=== PATIENT | female | born 1960 ===

== ENCOUNTER 2018-08-16 02:02 | Emergency (ER) | payer OTHER ==
[2018-08-16 02:16] VITALS: RESP 18; TEMP 97.8
--- NOTE | 2018-08-16 03:16 | ED PDOC ---
HPI: Abdomen Time Seen by Provider: 08/16/18 02:42 Chief Complaint (Nursing): Abdominal Pain Chief Complaint (Provider): abdominal pain History Per: Patient History/Exam Limitations: no limitations Onset/Duration Of Symptoms: Hrs Outside of [place] travel?: No Location Of Pain/Discomfort: RUQ Quality Of Discomfort: Sharp, Stabbing Associated Symptoms: Nausea. denies: Vomiting, Loss Of Appetite Additional Complaint(s): 57 y/o F with hx of Sjogren's disease and HL who presents to ED with sharp Right sided abdominal pain that began at 11:30pm. Pt states that she was laying down this evening when she suddenly had Right sided abdominal pain that went to her epigastrium. Pt states that she has a hx of gastritis but had recent endoscopy 3 months ago and was noted to no longer have evidence of gastritis. Has had cholecystectomy in the past. Past Medical History Reviewed: Historical Data, Nursing Documentation, Vital Signs Vital Signs: Last Vital Signs Temp 97.8 F 08/16/18 02:12 Pulse 72 08/16/18 02:12 Resp 18 08/16/18 02:12 BP 125/77 08/16/18 02:12 Pulse Ox 100 08/16/18 02:12 - Surgical History Surgical History: Cholecystectomy, Tonsillectomy - Family History Family History: States: Unknown Family Hx - Social History Current smoker - smoking cessation education provided: No - Home Medications Home Medications: Ambulatory Orders Medication Instructions Recorded Famotidine [Pepcid] 20 mg PO BID PRN 5 Days tab 08/16/18 - Allergies Allergies/Adverse Reactions: Allergies Allergy/AdvReac Type Severity Reaction Status Date / Time codeine Allergy Mild RASH Verified 08/16/18 02:16 Physical Exam - Reviewed Nursing Documentation Reviewed: Yes Vital Signs Reviewed: Yes - Physical Exam Appears: Positive for: Non-toxic Head Exam: Positive for: ATRAUMATIC Skin: Positive for: Normal Color Cardiovascular/Chest: Positive for: Regular Rate, Rhythm Respiratory: Positive for: Normal Breath Sounds Gastrointestinal/Abdominal: Positive for: Tenderness (mild RUQ tenderness on palpation), Guarding (some guarding). Negative for: Organomegaly, Mass, Rebound Back: Positive for: Normal Inspection. Negative for: L CVA Tenderness, R CVA Tenderness Neurologic/Psych: Positive for: Alert, Oriented - Laboratory Results Result Diagrams: 08/16/18 03:40 08/16/18 03:40 - ECG O2 Sat by Pulse Oximetry: 100 Medical Decision Making Medical Decision Making: CBC, CMP, urine dip, EKG, troponin Maalox, Pepcid 20mg PO x 1, lidocaine viscous Re-evaluation 5:20am: re-evaluated and abdominal discomfort improved, Amylase/Lipase wnl. Urine dip: negative for nitrite/LE Stable for D/c home to f/u with PMD re: elevated liver enzymes. Disposition - Clinical Impression Clinical Impression: Abdominal pain, Gastritis - Patient ED Disposition Is Patient to be Admitted: No Counseled Patient/Family Regarding: Studies Performed, Diagnosis, Need For Followup, Rx Given - Disposition Disposition: Routine/Home Disposition Time: 05:40 Condition: STABLE Additional Instructions: F/u with your primary care doctor, Ayush Drake, to discuss elevated liver enzymes as it may be related to your cholesterol medication. Return to ER if your abdominal pain worsens or if you develop fevers, chills. Prescriptions: Famotidine [Pepcid] 20 mg PO BID PRN 5 Days tab PRN Reason: Gi Distress Instructions: Gastritis (DC) Forms: [employer] (Greenlandic) Print Language: MACANESE
[2018-08-16] MEDS: Alum-Mag Hydrox-Simethicone Susp (30 mL) PO ONE (03:35)
[2018-08-16 04:20] LABS: BLOOD UREA NITROGEN 11 mg/dl (7-17); CALCIUM 9.3 mg/dL (8.4-10.2); GFR NON-AFRICAN AMERICAN > 60
[2018-08-16 04:21] LABS: ALB/GLOB RATIO 1.4 (1.0-2.1); ALT/SGPT 62 U/L (9-52); AST/SGOT 83 U/L (14-36)
[2018-08-16 04:28] LABS: BASO # 0.1 K/uL (0.0-0.2); BASO % 0.7 % (0.0-2.0); EOS # 0.1 K/uL (0.0-0.7); EOS % 1.1 % (0.0-4.0); HEMOGLOBIN 13.8 g/dL (12.0-16.0); LYMPH % 22.7 % (20.0-40.0); MEAN CELL VOLUME 89.3 fl (81.0-99.0); MEAN CORPUSCULAR HEMOGLOBIN 29.8 pg (27.0-31.0); MEAN CORPUSCULAR HGB CONC 33.4 g/dL (33.0-37.0); MONO # 0.8 K/uL (0.0-0.8); MONO % 8.9 % (0.0-10.0); NEUT # 5.8 K/uL (1.8-7.0); NEUT % 66.6 % (50.0-75.0); RBC 4.61 Mil/uL (3.80-5.20); RED CELL DISTRIBUTION WIDTH 13.9 % (11.5-14.5); WHITE BLOOD COUNT 8.8 K/uL (4.8-10.8)
[2018-08-16 05:05] LABS: AMYLASE 110 U/L (30-110); LIPASE 238 U/L (23-300)
[2018-08-16 05:54] VITALS: BP 118/67; PULSE 76; O2SAT 99
--- NOTE | 2018-08-16 19:05 | CARD ---
APPROVED REPORT Date of service: 08/16/2018 EKG Measurement Heart [id number] <Conclusion> Normal sinus rhythm with sinus arrhythmia Nonspecific ST and T wave abnormality Abnormal ECG
== END 2018-08-16 05:53 | disposition home or self-care (01) ==
LOC: H.ER 02:02
DX: K29.70 Gastritis, unspecified, without bleeding (principal); R10.9 Unspecified abdominal pain